=== PATIENT | male | born 1930 | race Caucasian/White ===

== ENCOUNTER 2019-09-16 15:09 | Inpatient (IN) | payer MEDICARE, OTHER ==
[~2019-09-16] VITALS: Ht 165.1 cm; Wt 73.1 kg
[2019-09-16] MEDS ORDERED: SODIUM CHLORIDE 0.9% 1,000 ML IVB ONE (15:33)
[2019-09-16 16:14] LABS: Basophils # (auto) 0 10 ^3/uL (0-0.2); Basophils % (auto) 0.2 % (0.0-2.0); Eosinophils # (auto) 0 10 ^3/uL (0-0.8); Eosinophils % (auto) 0.1 % (0.0-7.0); Hematocrit 42.2 % (41.0-53.0); Lymphocytes # (auto) 0.2 10 ^3/uL (0.4-5.4); Mean Corpuscular Hgb Conc. 33.1 g/dL (32.0-36.0); Mean Corpuscular Volume 96.7 fL (80.0-100.0); Monocytes # (auto) 0.2 10 ^3/uL (0-1.3); Monocytes % (auto) 4.3 % (0.0-12.0); Neutrophils # (auto) 5.2 10 ^3/uL (1.6-8.6); Neutrophils % (auto) 91.4 % (37.0-80.0); Nucleated Red Blood Cells % 0.1 %; Platelet Count (auto) 177 10^3/uL (140-450); Red Blood Cells 4.37 10^6/uL (4.5-5.90); Red Cell Distribution Width 14.6 % (11.8-14.3); White Blood Cell 5.7 10^3/uL (4.4-10.8)
[2019-09-16 16:30] LABS: Albumin 2.5 g/dL (3.4-5.0); Anion Gap 18 (5-15); BUN/Creatinine Ratio 24.8; Carbon Dioxide 15 mmol/L (21-32); Chloride 113 mmol/L (98-107); GFR African American 14 mL/min; GFR Non-African American 12 mL/min; Glucose 118 mg/dL (74-106); Potassium 3.2 mmol/L (3.5-5.1); Sodium 146 mmol/L (136-145)
[2019-09-16 16:32] LABS: Lactic Acid w/Reflex 5.1 mmol/L (0.4-2.0)
[2019-09-16 16:33] LABS: Alanine Aminotransferase 19 U/L (16-61); Alkaline Phosphatase 67 U/L (45-117); Aspartate Aminotransferase 25 U/L (15-37); Bilirubin, Total 0.6 mg/dL (0.2-1.0); Total Protein 6.5 g/dL (6.4-8.2)
[2019-09-16 16:40] LABS: Blood Urea Nitrogen 123 mg/dL (7-18)
[2019-09-16 16:46] LABS: INR 1.16 (0.9-1.15); Partial Thromboplastin Time 28.5 sec (23.64-32.05)
[2019-09-16 17:28] LABS: Urine Bacteria FEW /hpf (None Seen); Urine Blood 1+ /uL (Negative); Urine Specific Gravity 1.014 (1.001-1.035); Urine WBC <1 /hpf (0 - 3)
[2019-09-16] MEDS ORDERED: cefTRIAXone 1GM/50ML D5W 50 ML IV ONE (17:30)
[2019-09-16] MEDS ORDERED: HYDROcodone-ACET 5/325MG TAB PO PRN (17:45)
[2019-09-16] MEDS ORDERED: NITROGLYCERIN 0.4 MG SL TAB SL PRN (17:45)
[2019-09-16] MEDS ORDERED: METOCLOPRAMIDE HCL 5MG/ml INJ 2ml VIAL IV PRN (17:45)
[2019-09-16] MEDS ORDERED: LORazepam 0.5 MG TAB PO PRN (17:45)
[2019-09-16] MEDS ORDERED: LACTATED RINGER'S 1,500 ML IV ONE (17:45)
[2019-09-16] MEDS ORDERED: MORPHINE SULF INJ 2 MG/ML SYRINGE 1ML IV PRN ×2 (17:45)
[2019-09-16] MEDS ORDERED: ALUM & MAG HYDROX-SIMETH LIQ(MAALOX) 30 ML PO PRN (17:45)
[2019-09-16] MEDS ORDERED: DOCUSATE SOD 100 MG CAP PO PRN (17:45)
[2019-09-16] MEDS ORDERED: POTASSIUM CHL 20MEQ/100ML 100 ML IV ONE (17:45)
[2019-09-16 17:50] LABS: Alcohol, Urine < 3.0 mg/dL (0-5); Amphetamine Screen, Urine NEGATIVE (NEGATIVE); Barbiturate Scree,Urine NEGATIVE (NEGATIVE); Benzodiazephine Screen, Urine NEGATIVE (NEGATIVE); Cannabinoid Screen, Urine NEGATIVE (NEGATIVE); Cocaine Screen, Urine NEGATIVE (NEGATIVE); Opiate Scree,Urine NEGATIVE (NEGATIVE); Phencyclidine Screen, Urine NEGATIVE (NEGATIVE)
[2019-09-16] MEDS ORDERED: SODIUM CHLORIDE 0.9% 1,000 ML IV SCH (19:15)
[2019-09-16 22:00] VITALS: BP 117/86
[2019-09-16] MEDS ORDERED: FOLIC ACID 1 MG TAB PO ONE (22:00)
[2019-09-16] MEDS ORDERED: CALCIUM W/VIT D (600MG/400IU) TAB PO ONE (22:00)
[2019-09-16] MEDS ORDERED: ASCORBIC ACID 500 MG TAB PO SCH (22:00)
[2019-09-16] MEDS ORDERED: MULTIPLE VITAMIN TAB PO ONE (22:00)
[2019-09-16] MEDS ORDERED: THIAMINE HCL 100 MG TAB PO ONE (22:00)
[2019-09-16] MEDS ORDERED: ASCORBIC ACID 500 MG TAB PO ONE (22:00)
[2019-09-16] MEDS ORDERED: SODIUM BICARBONATE 50ML VIAL 150 ML in D5W 5% 1,000 ML IV SCH (22:15)
[2019-09-16] MEDS ORDERED: METOPROLOL TARTRATE 25 MG TAB PO ONE (22:15)
[2019-09-16] MEDS ORDERED: VITAMINS A & D (TOPICAL) OINT 5GM TOP PRN (22:15)
[2019-09-16] MEDS ORDERED: VITAMINS A & D (TOPICAL) OINT 5GM TOP ONE (22:15)
[2019-09-16] MEDS ORDERED: CLOTRIMAZOLE 1 % CREAM 15GM TOP ONE (22:15)
[2019-09-16] MEDS: POTASSIUM CHLORIDE 40 MEQ in D5W/LACTATED RINGERS 1,000 ML IV SCH (23:43)
[2019-09-17] VITALS (29 sets, daily range): BP systolic 69–117; BP diastolic 35–86
[2019-09-17] MEDS ORDERED: ALBUTEROL SULF 2.5 MG/0.5ML(0.5%) NEB SOLN NEB STA (01:49)
[2019-09-17] MEDS ORDERED: IPRATROPIUM BROM 0.5 MG/2.5ML INH SOL NEB STA (01:49)
[2019-09-17] MEDS ORDERED: IPRATROPIUM BROM 0.5 MG/2.5ML INH SOL NEB PRN (02:00)
[2019-09-17] MEDS ORDERED: ALBUTEROL SULF 2.5 MG/0.5ML(0.5%) NEB SOLN NEB PRN (02:00)
[2019-09-17] MEDS: POTASSIUM CHLORIDE 40 MEQ in D5W/LACTATED RINGERS 1,000 ML IV SCH (03:32)
[2019-09-17 06:38] LABS: Basophils # (auto) 0 10 ^3/uL (0-0.2); Basophils % (auto) 0.1 % (0.0-2.0); Eosinophils # (auto) 0 10 ^3/uL (0-0.8); Hematocrit 37.6 % (41.0-53.0); Lymphocytes # (auto) 0.2 10 ^3/uL (0.4-5.4); Lymphocytes % (auto) 2.8 % (10.0-50.0); Mean Corpuscular Hgb Conc. 34.5 g/dL (32.0-36.0); Mean Corpuscular Volume 95.6 fL (80.0-100.0); Monocytes # (auto) 0.2 10 ^3/uL (0-1.3); Monocytes % (auto) 3.1 % (0.0-12.0); Neutrophils # (auto) 6.8 10 ^3/uL (1.6-8.6); Nucleated Red Blood Cells % 0.1 %; Platelet Count (auto) 131 10^3/uL (140-450); Red Blood Cells 3.93 10^6/uL (4.5-5.90); Red Cell Distribution Width 14.5 % (11.8-14.3); White Blood Cell 7.3 10^3/uL (4.4-10.8)
[2019-09-17 06:51] LABS: INR 1.21 (0.9-1.15); Partial Thromboplastin Time 33.2 sec (23.64-32.05)
[2019-09-17 06:58] LABS: Albumin 2.3 g/dL (3.4-5.0); Calcium 9.1 mg/dL (8.5-10.1); Potassium 3.8 mmol/L (3.5-5.1)
[2019-09-17 07:08] LABS: Bilirubin, Total 0.4 mg/dL (0.2-1.0); Ferritin 594.4 ng/mL (10-322); Phosphorus 3.8 mg/dL (2.5-4.90); Total Protein 5.9 g/dL (6.4-8.2)
[2019-09-17] MEDS ORDERED: CALCIUM W/VIT D (600MG/400IU) TAB PO SCH (08:00)
[2019-09-17] MEDS ORDERED: cefTRIAXone 1GM/50ML D5W 50 ML IV SCH (09:00)
[2019-09-17 09:57] LABS: CRP High Sensitivity 23.2 mg/dL (< 0.3)
[2019-09-17] MEDS ORDERED: METOPROLOL TARTRATE 25 MG TAB PO SCH (10:00)
[2019-09-17] MEDS ORDERED: FOLIC ACID 1 MG TAB PO SCH (10:00)
[2019-09-17] MEDS ORDERED: AZITHROMYCIN 500MG/ 250ML 250 ML IV SCH (10:00)
[2019-09-17] MEDS ORDERED: THIAMINE HCL 100 MG TAB PO SCH (10:00)
[2019-09-17] MEDS ORDERED: D5W/SOD CHL 0.45% 1,000 ML IV SCH (10:45)
[2019-09-17] MEDS ORDERED: FOLIC ACID 1 MG in D5W 5% 50 ML IV ONE (10:45)
[2019-09-17] MEDS ORDERED: THIAMINE 100mg/ml INJ (200mg/2ml VIAL) IV ONE (10:45)
[2019-09-17] MEDS ORDERED: FLUCONAZOLE 200MG/100ML 100 ML IV ONE (10:45)
[2019-09-17] MEDS: MULTIPLE VITAMIN TAB PO SCH (11:49)
[2019-09-17] MEDS: CLOTRIMAZOLE 1 % CREAM 15GM TOP SCH ×2 (11:49→21:56)
[2019-09-17] MEDS ORDERED: ALBUTEROL SULF 2.5 MG/0.5ML(0.5%) NEB SOLN NEB SCH (12:00)
[2019-09-17] MEDS ORDERED: IPRATROPIUM BROM 0.5 MG/2.5ML INH SOL NEB SCH ×2 (12:00→18:00)
[2019-09-17] MEDS ORDERED: methylPREDNISolone SOD SUCC 125 MG/2 ML VL IV SCH (17:00)
[2019-09-17] MEDS ORDERED: ETOMIDATE (2MG/ML) 20ML VIAL IV ONE ×2 (17:22→17:23)
[2019-09-17] MEDS ORDERED: SUCCINYLCHOLINE CHLORIDE 20 MG/ML 10ML VIAL IV ONE ×2 (17:23→17:25)
[2019-09-17] MEDS ORDERED: MIDAZOLAM DRIP 50 mg/50mL 50 ML IV ONE (17:36)
[2019-09-17] MEDS ORDERED: NOREPINEPHRINE 8 MG/250ML KIT 250 ML IV ONE (17:50)
[2019-09-17] MEDS: fentaNYL Drip 2500mCg/250mlNS 250 ML IV SCH (17:57)
[2019-09-17] MEDS: PROPOFOL 100 ML IV SCH (17:57)
[2019-09-17] MEDS: IPRATROPIUM BROM 0.5 MG/2.5ML INH SOL NEB SCH (18:00)
[2019-09-17] MEDS: metroNIDAZOLE 500MG/100ML 100 ML IV SCH (21:56)
[2019-09-17] MEDS: NOREPINEPHRINE 8 MG/250ML KIT 250 ML IV SCH (23:53)
[2019-09-18] VITALS (105 sets, daily range): BP systolic 61–172; BP diastolic 29–109
[2019-09-18] MEDS: MIDAZOLAM DRIP 50 mg/50mL 50 ML IV SCH ×5 (00:25→22:45)
[2019-09-18 04:28] LABS: Basophils # (auto) 0 10 ^3/uL (0-0.2); Basophils % (auto) 0.1 % (0.0-2.0); Eosinophils # (auto) 0 10 ^3/uL (0-0.8); Eosinophils % (auto) 0.1 % (0.0-7.0); Hematocrit 35.2 % (41.0-53.0); Hemoglobin 11.9 g/dL (13.5-17.5); Lymphocytes # (auto) 0.8 10 ^3/uL (0.4-5.4); Lymphocytes % (auto) 4.9 % (10.0-50.0); Mean Corpuscular Hemoglobin 32.6 pg (28.0-32.0); Mean Corpuscular Hgb Conc. 33.8 g/dL (32.0-36.0); Mean Corpuscular Volume 96.3 fL (80.0-100.0); Monocytes # (auto) 0.6 10 ^3/uL (0-1.3); Monocytes % (auto) 3.5 % (0.0-12.0); Neutrophils # (auto) 15.1 10 ^3/uL (1.6-8.6); Neutrophils % (auto) 91.4 % (37.0-80.0); Nucleated Red Blood Cells % 0.1 %; Platelet Count (auto) 128 10^3/uL (140-450); Red Blood Cells 3.65 10^6/uL (4.5-5.90); Red Cell Distribution Width 14.9 % (11.8-14.3); White Blood Cell 16.6 10^3/uL (4.4-10.8)
[2019-09-18 04:41] LABS: Magnesium 2.9 mg/dL (1.6-2.6)
[2019-09-18 04:44] LABS: BUN/Creatinine Ratio 27.5; Phosphorus 4.6 mg/dL (2.5-4.90)
[2019-09-18] MEDS: methylPREDNISolone SOD SUCC 40 MG/ML VL IV SCH ×3 (06:00→21:27)
[2019-09-18] MEDS: metroNIDAZOLE 500MG/100ML 100 ML IV SCH (06:00)
[2019-09-18 06:06] LABS: RPR Non Reactive (Non Reactive)
[2019-09-18] MEDS: IPRATROPIUM BROM 0.5 MG/2.5ML INH SOL NEB SCH ×4 (06:17→18:41)
[2019-09-18] MEDS: NOREPINEPHRINE 8 MG/250ML KIT 250 ML IV SCH ×2 (06:32→14:46)
[2019-09-18] MEDS ORDERED: PIPERACILLIN-TAZOB 2.25GM 50 ML IV ONE ×2 (10:00→13:30)
[2019-09-18] MEDS ORDERED: SODIUM CHLORIDE 0.9% 500 ML IV ONE (10:00)
[2019-09-18] MEDS: FLUCONAZOLE 200MG/100ML 100 ML IV SCH (11:18)
[2019-09-18] MEDS: MULTIPLE VITAMIN TAB PO SCH (11:25)
[2019-09-18] MEDS: D5W/SOD CHLO 0.9% 1,000 ML IV SCH ×2 (11:29→20:58)
[2019-09-18] MEDS: THIAMINE 100mg/ml INJ (200mg/2ml VIAL) IV SCH (11:49)
[2019-09-18] MEDS ORDERED: PIPERACILLIN-TAZOB 2.25GM 50 ML IV SCH (12:00)
[2019-09-18] MEDS: LINEZOLID 600MG/300ML 300 ML IV SCH ×2 (12:30→21:27)
[2019-09-18] MEDS: CLOTRIMAZOLE 1 % CREAM 15GM TOP SCH ×2 (13:36→20:44)
[2019-09-18] MEDS: FOLIC ACID 1 MG in D5W 5% 50 ML IV SCH (14:44)
[2019-09-18] MEDS: PIPERACILLIN-TAZOB 2.25GM 50 ML IV SCH ×2 (14:52→20:58)
[2019-09-18] MEDS: AZITHROMYCIN 500MG/ 250ML 250 ML IV SCH (16:45)
[2019-09-18] MEDS: fentaNYL Drip 2500mCg/250mlNS 250 ML IV SCH (17:57)
[2019-09-18] MEDS: PROPOFOL 100 ML IV SCH (17:57)
[2019-09-19] VITALS (97 sets, daily range): BP systolic 72–145; BP diastolic 44–94
[2019-09-19] MEDS: IPRATROPIUM BROM 0.5 MG/2.5ML INH SOL NEB SCH ×4 (00:14→18:25)
[2019-09-19] MEDS: PIPERACILLIN-TAZOB 2.25GM 50 ML IV SCH ×3 (02:00→15:08)
[2019-09-19 03:57] LABS: Hematocrit 35.7 % (41.0-53.0); Hemoglobin 11.8 g/dL (13.5-17.5); Mean Corpuscular Hemoglobin 31.8 pg (28.0-32.0); Mean Corpuscular Hgb Conc. 33.1 g/dL (32.0-36.0); Mean Corpuscular Volume 96.1 fL (80.0-100.0); Platelet Count (auto) 91 10^3/uL (140-450); Red Blood Cells 3.71 10^6/uL (4.5-5.90); Red Cell Distribution Width 15.3 % (11.8-14.3); White Blood Cell 13.1 10^3/uL (4.4-10.8)
[2019-09-19 04:18] LABS: Basophils % (manual) 0 (0.0-2.0); Blast Cells 0; Eosinophils % (manual) 0 (0-7); Metamyelocytes % 0; Myelocytes % 0; Promyelocytes % 0; Reactive Lymphocytes 0
[2019-09-19 04:19] LABS: Albumin 1.8 g/dL (3.4-5.0); Calcium 8.7 mg/dL (8.5-10.1)
[2019-09-19 04:21] LABS: BUN/Creatinine Ratio 28.2; Bilirubin, Total 0.3 mg/dL (0.2-1.0); Total Protein 5.2 g/dL (6.4-8.2)
[2019-09-19 04:38] LABS: CRP High Sensitivity > 19.0 mg/dL (< 0.3)
[2019-09-19 05:35] LABS: Band Neutrophils % (manual) 15; Lymphocytes % (manual) 2 (10.0-50.0); Monocytes % (manual) 2 (0-12)
[2019-09-19] MEDS: D5W/SOD CHLO 0.9% 1,000 ML IV SCH ×2 (06:00→11:28)
[2019-09-19] MEDS: fentaNYL Drip 2500mCg/250mlNS 250 ML IV SCH (06:00)
[2019-09-19] MEDS: methylPREDNISolone SOD SUCC 40 MG/ML VL IV SCH ×2 (06:00→15:10)
[2019-09-19] MEDS: FLUCONAZOLE 200MG/100ML 100 ML IV SCH (09:11)
[2019-09-19] MEDS: MULTIPLE VITAMIN TAB PO SCH (09:11)
[2019-09-19] MEDS: LINEZOLID 600MG/300ML 300 ML IV SCH (10:50)
[2019-09-19] MEDS: FOLIC ACID 1 MG in D5W 5% 50 ML IV SCH (10:50)
[2019-09-19] MEDS: THIAMINE 100mg/ml INJ (200mg/2ml VIAL) IV SCH (10:51)
[2019-09-19] MEDS ORDERED: SODIUM BICARBONATE 8.4 % INJ 50ML VIAL IV ONE (12:45)
[2019-09-19] MEDS ORDERED: Jevity 1.2 Cal/Fiber 1 Liter GT SCH (12:45)
[2019-09-19] MEDS ORDERED: FAMOTIDINE (10MG/ML) 2ML VL IV ONE (12:45)
[2019-09-19] MEDS: SOD CHL 0.45% 1,000 ML IV SCH (15:12)
[2019-09-19] MEDS: NOREPINEPHRINE 8 MG/250ML KIT 250 ML IV SCH (15:13)
[2019-09-19] MEDS: AZITHROMYCIN 500MG/ 250ML 250 ML IV SCH (16:26)
[2019-09-19] MEDS ORDERED: LIDOCAINE 1% (LOCAL ANESTH.) PF 5ml SDV ID ONE (16:30)
[2019-09-19] MEDS: CLOTRIMAZOLE 1 % CREAM 15GM TOP SCH (17:00)
[2019-09-19] MEDS: PROPOFOL 100 ML IV SCH (17:57)
[2019-09-19] MEDS: MIDAZOLAM DRIP 50 mg/50mL 50 ML IV SCH (22:55)
[2019-09-20] VITALS (105 sets, daily range): BP systolic 82–192; BP diastolic 45–92
[2019-09-20] MEDS: SODIUM CHLOR 0.9% PF (SALINE LOCK) 10ML VIAL/SYR IV SCH ×3 (00:17→21:31)
[2019-09-20] MEDS: ASCORBIC ACID 500 MG TAB PO SCH ×2 (00:17→10:03)
[2019-09-20] MEDS: PIPERACILLIN-TAZOB 2.25GM 50 ML IV SCH ×2 (00:17→03:54)
[2019-09-20] MEDS: methylPREDNISolone SOD SUCC 40 MG/ML VL IV SCH ×2 (00:17→06:14)
[2019-09-20] MEDS: CLOTRIMAZOLE 1 % CREAM 15GM TOP SCH ×3 (00:20→21:31)
[2019-09-20] MEDS: IPRATROPIUM BROM 0.5 MG/2.5ML INH SOL NEB SCH ×4 (00:26→18:25)
[2019-09-20] MEDS: LINEZOLID 600MG/300ML 300 ML IV SCH ×2 (00:44→10:03)
[2019-09-20] MEDS: SOD CHL 0.45% 1,000 ML IV SCH (03:55)
[2019-09-20 04:18] LABS: Basophils # (auto) 0 10 ^3/uL (0-0.2); Eosinophils # (auto) 0 10 ^3/uL (0-0.8); Hematocrit 30.7 % (41.0-53.0); Hemoglobin 10.3 g/dL (13.5-17.5); Lymphocytes # (auto) 0.5 10 ^3/uL (0.4-5.4); Lymphocytes % (auto) 2.6 % (10.0-50.0); Mean Corpuscular Hemoglobin 32.4 pg (28.0-32.0); Mean Corpuscular Hgb Conc. 33.7 g/dL (32.0-36.0); Mean Corpuscular Volume 96.1 fL (80.0-100.0); Monocytes # (auto) 0.4 10 ^3/uL (0-1.3); Monocytes % (auto) 2.3 % (0.0-12.0); Neutrophils # (auto) 16.9 10 ^3/uL (1.6-8.6); Neutrophils % (auto) 95.1 % (37.0-80.0); Platelet Count (auto) 72 10^3/uL (140-450); Red Blood Cells 3.19 10^6/uL (4.5-5.90); Red Cell Distribution Width 14.9 % (11.8-14.3); White Blood Cell 17.7 10^3/uL (4.4-10.8)
[2019-09-20 04:30] LABS: Potassium 3.7 mmol/L (3.5-5.1)
[2019-09-20 04:38] LABS: Calcium 8.3 mg/dL (8.5-10.1)
[2019-09-20] MEDS ORDERED: FAMOTIDINE (10MG/ML) 2ML VL IV SCH (10:00)
[2019-09-20] MEDS ORDERED: CHOLECALCIFEROL (VITD3) 1,000IU=25mCg TAB PO SCH (10:00)
[2019-09-20] MEDS: MEROPENEM 500MG IVPB 50 ML IV SCH ×2 (10:03→21:20)
[2019-09-20] MEDS: FLUCONAZOLE 200MG/100ML 100 ML IV SCH (10:03)
[2019-09-20] MEDS: MULTIPLE VITAMIN TAB PO SCH (10:03)
[2019-09-20] MEDS: FOLIC ACID 1 MG in D5W 5% 50 ML IV SCH (10:27)
[2019-09-20] MEDS: THIAMINE 100mg/ml INJ (200mg/2ml VIAL) IV SCH (10:33)
[2019-09-20] MEDS: PROPOFOL 100 ML IV SCH (18:34)
[2019-09-20] MEDS: fentaNYL Drip 2500mCg/250mlNS 250 ML IV SCH (18:34)
[2019-09-20] MEDS: NOREPINEPHRINE 8 MG/250ML KIT 250 ML IV SCH (18:35)
[2019-09-20] MEDS: MIDAZOLAM DRIP 50 mg/50mL 50 ML IV SCH (22:50)
[2019-09-21] VITALS (82 sets, daily range): BP systolic 73–179; BP diastolic 43–91
[2019-09-21] MEDS: IPRATROPIUM BROM 0.5 MG/2.5ML INH SOL NEB SCH ×3 (00:16→12:00)
[2019-09-21 04:16] LABS: Basophils # (auto) 0 10 ^3/uL (0-0.2); Basophils % (auto) 0.1 % (0.0-2.0); Eosinophils # (auto) 0 10 ^3/uL (0-0.8); Hematocrit 32.8 % (41.0-53.0); Hemoglobin 11.2 g/dL (13.5-17.5); Lymphocytes # (auto) 0.3 10 ^3/uL (0.4-5.4); Lymphocytes % (auto) 1.6 % (10.0-50.0); Mean Corpuscular Hemoglobin 32.4 pg (28.0-32.0); Mean Corpuscular Hgb Conc. 34.1 g/dL (32.0-36.0); Mean Corpuscular Volume 94.8 fL (80.0-100.0); Monocytes # (auto) 0.5 10 ^3/uL (0-1.3); Monocytes % (auto) 2.4 % (0.0-12.0); Neutrophils # (auto) 19.8 10 ^3/uL (1.6-8.6); Neutrophils % (auto) 95.9 % (37.0-80.0); Nucleated Red Blood Cells % 0.1 %; Platelet Count (auto) 82 10^3/uL (140-450); Red Blood Cells 3.46 10^6/uL (4.5-5.90); Red Cell Distribution Width 15.3 % (11.8-14.3); White Blood Cell 20.6 10^3/uL (4.4-10.8)
[2019-09-21 04:30] LABS: Albumin 1.6 g/dL (3.4-5.0); Calcium 8.1 mg/dL (8.5-10.1); Potassium 3.7 mmol/L (3.5-5.1)
[2019-09-21 04:35] LABS: BUN/Creatinine Ratio 30.1; Bilirubin, Total 0.3 mg/dL (0.2-1.0); Total Protein 4.9 g/dL (6.4-8.2)
[2019-09-21] MEDS: MEROPENEM 500MG IVPB 50 ML IV SCH (09:11)
[2019-09-21] MEDS ORDERED: SODIUM CHLORIDE 0.9% 1,000 ML IV SCH (10:00)
[2019-09-21] MEDS: THIAMINE 100mg/ml INJ (200mg/2ml VIAL) IV SCH (10:00)
[2019-09-21] MEDS: SODIUM CHLOR 0.9% PF (SALINE LOCK) 10ML VIAL/SYR IV SCH ×2 (10:04→21:10)
[2019-09-21] MEDS: CLOTRIMAZOLE 1 % CREAM 15GM TOP SCH (10:04)
[2019-09-21] MEDS: FOLIC ACID 1 MG in D5W 5% 50 ML IV SCH (10:04)
[2019-09-21] MEDS: FLUCONAZOLE 200MG/100ML 100 ML IV SCH (10:04)
[2019-09-21] MEDS: MULTIPLE VITAMIN TAB PO SCH (10:04)
[2019-09-21] MEDS: fentaNYL Drip 2500mCg/250mlNS 250 ML IV SCH (11:19)
[2019-09-21] MEDS: PROPOFOL 100 ML IV SCH (11:19)
[2019-09-21 11:57] LABS: Urine Bacteria FEW /hpf (None Seen); Urine Blood Negative /uL (Negative); Urine Mucus FEW (None Seen); Urine Specific Gravity 1.016 (1.001-1.035); Urine WBC 2 /hpf (0 - 3)
[2019-09-21] MEDS ORDERED: LORazepam 2MG/ML-1ML VIAL IV PRN (12:30)
[2019-09-21] MEDS ORDERED: MORPHINE SULF INJ 2 MG/ML SYRINGE 1ML IV PRN (12:30)
[2019-09-21 14:49] LABS: Protein, Urine 50.4 mg/dL (0.0-11.9)
[2019-09-22] VITALS (26 sets, daily range): BP systolic 114–129; BP diastolic 61–85
[2019-09-22] MEDS: SODIUM CHLOR 0.9% PF (SALINE LOCK) 10ML VIAL/SYR IV SCH (11:04)
== END 2019-09-22 17:25 | disposition hospice, inpatient (51) | DRG 871 ==
LOC: EDBD 15:09 → ER 15:09 → TELE 15:10 → TELE-CENTR 20:01 → ICU WEST 09-17 20:01 → CENTRAL 09-22 08:45
PROVIDERS: ADMIT Hospitalist; ATTEND Internal Medicine
PROC: 5A1945Z Respiratory Ventilation, 24-96 Consecutive Hours (ICD-10-PCS; principal; 2019-09-17)
PROC: 0BH17EZ Insertion of Endotracheal Airway into Trachea, Via Natural or Artificial Opening (ICD-10-PCS; 2019-09-17)
PROC: 5A09357 Assistance with Respiratory Ventilation, Less than 24 Consecutive Hours, Continuous Positive Airway Pressure (ICD-10-PCS; 2019-09-17)
PROC: 02HV33Z Insertion of Infusion Device into Superior Vena Cava, Percutaneous Approach (ICD-10-PCS; 2019-09-19)
DX: A41.9 Sepsis, unspecified organism (principal); E43 Unspecified severe protein-calorie malnutrition; G93.41 Metabolic encephalopathy; J18.9 Pneumonia, unspecified organism; J96.22 Acute and chronic respiratory failure with hypercapnia; J96.21 Acute and chronic respiratory failure with hypoxia; R65.21 Severe sepsis with septic shock; N17.0 Acute kidney failure with tubular necrosis; C90.00 Multiple myeloma not having achieved remission; E87.0 Hyperosmolality and hypernatremia; J44.0 Chronic obstructive pulmonary disease with (acute) lower respiratory infection; J44.1 Chronic obstructive pulmonary disease with (acute) exacerbation; J98.11 Atelectasis; N30.01 Acute cystitis with hematuria; Z99.11 Dependence on respirator [ventilator] status; E87.1 Hypo-osmolality and hyponatremia; E86.0 Dehydration; E87.6 Hypokalemia; F10.10 Alcohol abuse, uncomplicated; F17.200 Nicotine dependence, unspecified, uncomplicated; I73.9 Peripheral vascular disease, unspecified; I95.1 Orthostatic hypotension; L30.4 Erythema intertrigo; N18.9 Chronic kidney disease, unspecified; R29.6 Repeated falls; R62.7 Adult failure to thrive; D69.6 Thrombocytopenia, unspecified; E55.9 Vitamin D deficiency, unspecified; Z51.5 Encounter for palliative care; Z66 Do not resuscitate; C80.1 Malignant (primary) neoplasm, unspecified; Z86.73 Personal history of transient ischemic attack (TIA), and cerebral infarction without residual deficits; Z85.828 Personal history of other malignant neoplasm of skin; R73.9 Hyperglycemia, unspecified; Z68.21 Body mass index [BMI] 21.0-21.9, adult; Z03.818 Encounter for observation for suspected exposure to other biological agents ruled out
CPT/HCPCS: 36415; 36569; 36600; 51702; 70450; 71045; 76775; 80048; 80053; 80307; 81001; 82306; 82550; 82570; 82607; 82728; 82805; 82962; 83605; 83735; 83880; 83970; 84100; 84156; 84443; 84484; 85007; 85025; 85027; 85610; 85652; 85730; 86141; 86592; 87040; 87070; 87081; 87205; 92610; 93005; 93306; 94002; 94003; 94640; 94660; 96361; 96365; 97163; G0378; J0330; J0696; J1450; J2185; J2250; J2543; J2704; J3480; J3490; J7042; J7060